=== PATIENT | male | born 1995 | race African-American/Black ===

== ENCOUNTER 2022-03-06 07:19 | Emergency (ER) | payer MEDICAID ==
[~2022-03-06] VITALS: Ht 193 cm; Wt 84.0 kg
[2022-03-06] MEDS ORDERED: TRAMADOL 50MG TABLET PO ONE (09:15)
[2022-03-06] MEDS ORDERED: IBUPROFEN 400MG TABLET PO ONE (09:45)
[2022-03-06] MEDS ORDERED: NAPR-679 MT (10:30)
[2022-03-06] MEDS ORDERED: TRAM50TA3 MT (10:30)
[2022-03-06 10:46] VITALS: BP 122/63
== END 2022-03-06 10:48 | disposition home or self-care (01) ==
LOC: ER 07:42
DX: R68.84 Jaw pain (principal); Z87.81 Personal history of (healed) traumatic fracture; Z98.890 Other specified postprocedural states
CPT/HCPCS: 70110; 99283

== ENCOUNTER 2022-03-26 17:25 | Emergency (ER) | payer SELFPAY ==
[~2022-03-26] VITALS: Ht 190.5 cm; Wt 72.0 kg
[~2022-03-26 17:25] MED LIST: NAPR-679 MT; TRAM50TA3 MT
[2022-03-26] MEDS ORDERED: AMOX1TAB16 MT (18:14)
[2022-03-26] MEDS ORDERED: IBUP-2030 MT (18:14)
[2022-03-26] MEDS ORDERED: ACET-3163 MT (18:14)
[2022-03-26] MEDS ORDERED: ACETAMINOPHEN 325MG TABLET PO ONE (18:15)
[2022-03-26] MEDS ORDERED: METHYLPREDNISOLONE 4MG TABLET PO ONE (18:15)
[2022-03-26] MEDS ORDERED: KETOROLAC 60MG/2ML VIAL IM ONE (18:15)
[2022-03-26 20:48] VITALS: BP 156/79
== END 2022-03-26 20:51 | disposition home or self-care (01) ==
LOC: ER 17:25
DX: K02.9 Dental caries, unspecified (principal); Z98.890 Other specified postprocedural states
CPT/HCPCS: 96372; 99283; J1885; J7509

== ENCOUNTER 2022-05-06 13:05 | Emergency (ER) | payer SELFPAY ==
[~2022-05-06] VITALS: Ht 185.4 cm; Wt 76.0 kg
[~2022-05-06 13:05] MED LIST changes: +ACET-3163 MT; +AMOX1TAB16 MT; +IBUP-2030 MT
[2022-05-06 13:12] VITALS: BP 103/67
== END 2022-05-06 16:16 | disposition left against medical advice (07) ==
LOC: ER 13:05
DX: R68.84 Jaw pain (principal); F17.210 Nicotine dependence, cigarettes, uncomplicated; F41.9 Anxiety disorder, unspecified; Z71.6 Tobacco abuse counseling
CPT/HCPCS: 99281

== ENCOUNTER 2022-05-08 02:59 | Emergency (ER) | payer OTHER ==
[~2022-05-08] VITALS: Ht 185.4 cm; Wt 75.0 kg
[2022-05-08 03:30] VITALS: BP 130/70
[2022-05-08] MEDS ORDERED: IBUPROFEN 600MG TABLET PO ONE (03:30)
[2022-05-08] MEDS ORDERED: AMOXICILLIN/POTASSIUM CLAVULANATE 875/125MG TAB PO ONE (03:30)
[2022-05-08] MEDS ORDERED: IBUP-2029 MT (04:01)
[2022-05-08] MEDS ORDERED: AMOX1TAB16 MT (04:01)
== END 2022-05-08 04:04 | disposition home or self-care (01) ==
LOC: ER 02:59
DX: K04.7 Periapical abscess without sinus (principal); K02.9 Dental caries, unspecified
CPT/HCPCS: 99283